=== PATIENT | female | born 1950 | race Caucasian/White ===

== ENCOUNTER 2020-03-20 13:06 | Emergency (ER) | payer OTHER ==
[~2020-03-20] VITALS: Ht 152.4 cm; Wt 64.9 kg
[2020-03-20 13:18] VITALS: BP 142/76
--- NOTE | 2020-03-20 13:50 | NUR ---
PT RETURNED FROM CT AND PLACED BACK TO WAIT IN ER LOBBY.
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
[2020-03-20 15:04] VITALS: BP 142/76
--- NOTE | 2020-03-20 15:04 | NUR ---
Patient discharged with v/s stable. Written and verbal after care instructions given and explained. Patient alert, oriented and verbalized understanding of instructions. Ambulatory with steady gait. All questions addressed prior to discharge. ID band removed. Patient advised to follow up with PMD. Rx of [id number] given. Patient educated on indication of medication including possible reaction and side effects. Opportunity to ask questions provided and answered.
== END 2020-03-20 15:04 | disposition home or self-care (01) ==
LOC: MED 13:06
DX: S09.90XA Unspecified injury of head, initial encounter (principal); G44.309 Post-traumatic headache, unspecified, not intractable; R42 Dizziness and giddiness; R11.0 Nausea; Z90.710 Acquired absence of both cervix and uterus; W51.XXXA Accidental striking against or bumped into by another person, initial encounter; Y93.89 Activity, other specified; Y92.89 Other specified places as the place of occurrence of the external cause; Y99.0 Civilian activity done for income or pay
CPT/HCPCS: 70450; 99284